=== PATIENT | male | born 1945 | race Caucasian/White ===

== ENCOUNTER 2017-02-03 18:33 | Emergency (ER) | payer OTHER ==
[~2017-02-03] VITALS: Wt 86.6 kg
[2017-02-03] MEDS ORDERED: TOPROL XL25 MG PO (18:53)
[2017-02-03] MEDS ORDERED: SYNTHROID137 MCG PO (18:53)
[2017-02-03] MEDS ORDERED: CEPHALEXIN500 M1 PO (21:17)
== END 2017-02-03 23:07 | disposition home or self-care (01) ==
LOC: ED 18:33
DX: S61.216A Laceration without foreign body of right little finger without damage to nail, initial encounter (principal); Z79.899 Other long term (current) drug therapy; X58.XXXA Exposure to other specified factors, initial encounter; Y93.89 Activity, other specified; Y92.810 Car as the place of occurrence of the external cause; Y99.8 Other external cause status

== ENCOUNTER 2020-11-18 12:14 | Emergency (ER) | payer OTHER ==
[~2020-11-18] VITALS: Ht 177.8 cm; Wt 84.4 kg
[~2020-11-18 12:14] MED LIST: CEPHALEXIN500 M1 PO; SYNTHROID137 MCG PO; TOPROL XL25 MG PO
[2020-11-18 13:15] LABS: BASO % 0.7 % (0.0-1.0); EOS # 0.1 10*3/uL (0.0-0.4); EOS % 2.5 % (1.0-4.0); HEMATOCRIT 46.8 % (42.0-52.0); LYMPH # 1.2 10*3/uL (1.3-4.4); LYMPH % 20.6 % (27.0-41.0); MEAN CELL VOLUME 88.5 fl (80.0-94.0); MEAN CORPUSCULAR HGB 28.9 pg (27.0-31.0); MEAN CORPUSCULAR HGB CONC 32.7 g/dl (33.0-37.0); MONO # 0.3 10*3/uL (0.1-1.0); MONO % 5.3 % (3.0-9.0); NEUT % 70.5 % (47.0-73.0); PLATELET COUNT AUTOMATED 248 10*3/uL (130-400); RED BLOOD COUNT 5.29 10*6/uL (4.50-5.90); RED CELL DISTRI WIDTH 13.9 % (0-14.5); WHITE BLOOD COUNT 5.6 10*3/uL (4.8-10.8)
[2020-11-18 13:29] LABS: BUN 16 mg/dl (7-24); CHLORIDE 109 mmol/L (98-107); CREATININE 1.09 mg/dL (0.70-1.30); POTASSIUM 4.1 mmol/L (3.5-5.1); SODIUM 140 mmol/L (136-145)
[2020-11-18 13:53] LABS: BILIRUBIN Negative (Negative); BLOOD Negative (Negative); CLARITY Clear (Clear); COLOR Yellow (Yellow); GLUCOSE Negative (Negative); KETONE Negative (Negative); LEUKO ESTERASE Negative (Negative); NITRITE Negative (Negative); PH 5.5 (4.5-8.0); SPECIFIC GRAVITY <= 1.005 (1.001-1.030); UROBILINOGEN 0.2 E.U./dl (0.0-1.0)
[2020-11-18 14:15] LABS: BACTERIA TRACE
== END 2020-11-18 14:28 | disposition home or self-care (01) ==
LOC: ED 12:14
PROVIDERS: Emergency Medicine
DX: R51.9 Headache, unspecified (principal)